=== PATIENT | male | born 1975 | race Caucasian/White ===

== ENCOUNTER 2020-05-27 20:59 | Emergency (ER) | payer SELFPAY ==
[~2020-05-27] VITALS: Ht 185.4 cm; Wt 90.0 kg
[2020-05-27] MEDS ORDERED: METOCLOPRAMIDE HCL 10 MG/2 ML VIAL. IVP ONE (21:30)
[2020-05-27] MEDS ORDERED: IV RINGERS,LACTATED 1000ML 1,000 ML IV SCH (21:30)
[2020-05-27] MEDS ORDERED: KETOROLAC 15 MG/ML VIAL. IVP ONE (21:30)
[2020-05-27 21:35] LABS: BASO % 0 % (0-3); EOS % 0 % (0-3); HEMATOCRIT 45.2 % (39.0-53.0); HEMOGLOBIN 15.5 g/dL (13.0-17.5); LYMPH # 1.4 x10^3/uL (1.0-4.8); LYMPH % 9 % (24-48); MEAN CORPUSCULAR HEMOGLOBIN 30 pg (25-35); MEAN CORPUSCULAR HGB CONC 34 g/dL (31-37); MEAN CORPUSCULAR VOLUME 87 fL (79-100); MONO # 0.8 x10^3/uL (0.0-1.1); MONO % 5 % (0-9); NEUT # 14.1 x10^3/uL (1.8-7.7); NEUT % 86 % (31-73); PLATELET COUNT 258 x10^3/uL (140-400); RED BLOOD COUNT 5.18 x10^6/uL (4.30-5.70); RED CELL DISTRIBUTION WIDTH 13.2 % (11.5-14.5); WHITE BLOOD COUNT 16.3 x10^3/uL (4.0-11.0)
--- NOTE | 2020-05-27 21:43 | PHYS DOC ---
General Adult EDM: Chief Complaint: FLANK PAIN HPI: HPI: Patient is a 44 year old male who presents to the ED today with worsening left- sided flank pain that began couple hours ago. Patient noted that his pain was sudden in onset and that he had clots of blood in his urine, dysuria, and "feeling like he has a little bathroom but cannot go." Patient's pain radiates to his middle back and down his left leg, and also goes into his left testicle. Patient did not try any pain medication prior to coming to the ED. Patient denies any other symptoms. Review of Systems: Review of Systems: Constitutional: Denies fever or chills Eyes: Denies redness or eye pain HENT: Denies nasal congestion or sore throat Respiratory: Denies cough or shortness of breath Cardiovascular: Denies chest pain or palpitations GI: Denies abdominal pain, nausea, or vomiting : Positive for hematuria and dysuria Musculoskeletal: Denies or joint pain Integument: Denies rash or skin lesions Neurologic: Denies headache, focal weakness or sensory changes Complete systems were reviewed and found to be within normal limits, except as documented in this note. Current Medications: Current Medications Medications (Trade) Dose Ordered Sig/Nohemi Start Time Stop Time Status Last Admin Dose Admin Ketorolac Tromethamine (Toradol 15mg Vial) 15 mg 1X ONCE 05/27/20 21:30 05/27/20 21:31 DC Metoclopramide HCl (Reglan Vial) 10 mg 1X ONCE 05/27/20 21:30 05/27/20 21:31 DC Ringer's Solution 1,000 ml @ 1,000 mls/hr Q1H 05/27/20 21:30 05/27/20 22:29 Allergies: Allergies: Allergies Coded Allergies Type Severity Reaction Last Updated Verified No Known Drug Allergies 05/27/20 No Physical Exam: PE: Constitutional: Well developed, well nourished, mild distress, non-toxic appearance HENT: Normocephalic, atraumatic Eyes: PERRL, EOMI, conjunctiva normal, no discharge Neck: Normal range of motion, no tenderness, supple Lungs & Thorax: No respiratory distress, equal chest rise and fall Abdomen: Soft, no tenderness, Skin: Warm, dry, no erythema, no rash Back: No tenderness, left CVA tenderness Extremities: No tenderness, ROM intact, no edema, negative straight leg raise test Neurologic: Alert and oriented X 3, normal motor function, normal sensory function, no focal deficits noted Psychologic: Affect normal, judgment normal EKG: EKG: [] Radiology/Procedures: Radiology/Procedures: PROCEDURE: CT ABDOMEN PELVIS WO CONTRAST PQRS Compliance Statement: One or more of the following individualized dose reduction techniques were utilized for this examination: 1. Automated exposure control 2. Adjustment of the mA and/or kV according to patient size 3. Use of iterative reconstruction technique CT ABDOMEN+PELVIS WO Clinical Indication: Reason: left flank pain eval for ureteral calculi / Spl. Instructions: / History: Comparison: None. Technique: Helical CT imaging of the abdomen and pelvis is performed without IV or oral contrast. Findings: Lung bases are clear. Cardiac size normal. Cholelithiasis. The liver, spleen, pancreas, adrenal glands, and abdominal aorta are normal. The right kidney is normal. There is a solid soft tissue density mass partially exophytic from the anterior lower pole of the left kidney and measures approximately 6 cm AP by 5 cm transverse by 5.6 cm craniocaudal. A few small calcifications are seen in the mass. The left renal pelvis is mildly dilated and contains a small hyperdensity as seen on image 72 which is probably hemorrhage. There is a 1.1 cm left para- aortic lymph node, image 73. Inferior to this there is a 1 cm lymph node, image 82. No obvious invasion of the left renal vein is identified. Left ureter is minimally prominent. Moderate dependent hemorrhage is identified in the urinary bladder. There is no urinary bladder wall thickening. The stomach is unremarkable. There is no dilated small bowel. The appendix is normal. No colon wall thickening is seen. The descending colon is decompressed accentuating the wall thickness. The prostate and seminal vesicles are normal. No pelvic free fluid. No acute bone abnormality. IMPRESSION: 1. There is a soft tissue density solid mass exophytic from the anterior lower pole of the left kidney, considered renal cell carcinoma until proven otherwise. 2. There are 2 mildly enlarged left para-aortic lymph nodes that may be pastor metastases. 3. There is moderate acute hemorrhage dependently in the urinary bladder. The urinary bladder is otherwise normal. Small amount of hyperdensity is seen in the left renal pelvis which is also probably hemorrhage. 4. Cholelithiasis. Electronically signed by: James Montes MD (05/27/2020 10:45 PM) [facility] DICTATED and SIGNED BY: JAMES MONTES MD DATE: 05/27/20 [id number] [] Course & Med Decision Making: Course & Med Decision Making Labs and UA were ordered in order to check for any electrolyte or urinary abnormalities. Noncontrast CT scan was ordered as well. Labs are grossly unremarkable other than noted mildly elevated AST and ALT and UA showed gross blood. Noncontrast CT showed a mass in the anterior lower pole of the left kidney with enlarged mesenteric nodes that could potentially suggest renal cell carcinoma. Patient is requiring urology consult and close follow-up. Patient requests [facility] is no urology consult is available at [place]. Utilize [employer] phone line to discuss with Dr. Jeison Rodriguez (urology) at who is in agreement with close outpatient follow-up. Patient will be provided with bladder irrigation in order to facilitate clot removal from bladder. Patient be sent home with instructions on how to flush the Phillips catheter and instructions to follow-up in 1 to 2 days. Patient was provided with the phone number if no contact is obtained. Images were clouded over to . Patient stable for discharge with outpatient follow-up with PCP/ urology. Discussed findings and plan with patient, who acknowledges understanding and agreement. [] Rukhsana Disclaimer: Rukhsana Disclaimer: This electronic medical record was generated, in whole or in part, using a voice recognition dictation system. Departure Departure Impression: Primary Impression: Left kidney mass Additional Impression: Bladder obstruction Disposition: 01 DC HOME SELF CARE/HOMELESS Condition: STABLE Referrals: NO PCP (PCP) Patient Instructions: Phillips Catheter Care, Adult, Hematuria, Adult, Renal Cell Cancer Additional Instructions: There is concern your mass may be cancerous and close Urology evaluation is required. WE have contacted Urology at your request and given them your information so they can have you closely evaluated and worked up for your abnormal CT scan. They have reported they will call you with an appointment time by tomorrow afternoon. If you have not been contacted by the afternoon, please call the Urology clinic directly at and speak with Kate. I spoke directly with Dr. Jeison Rodriguez (urology). We have also instructed you on how to flush your catheter if you start to have any further bladder obstruction. Scripts Hydrocodone Bit/Acetaminophen (HYDROCODONE-APAP 5-325 ) 1 Tab Tablet 0.5-1 TAB PO PRN Q6HRS PRN for PAIN, #14 TAB 0 Refills Prov: VANDANA BENNETT DO 05/28/20 Ondansetron (ONDANSETRON ODT) 4 Mg Tab.rapdis 1 TAB PO PRN Q6-8HRS PRN for NAUSEA, #16 TAB Prov: VANDANA BENNETT DO 05/28/20 VANDANA BENNETT DO May 27, 2020 21:43
[2020-05-27 21:47] LABS: CLARITY,URINE BLOODY; COLOR,URINE RED
[2020-05-27 21:51] LABS: BACTERIA,URINE 0 /HPF (0-FEW); RBC,URINE FIELD OBSCURED /HPF (0-2)
[2020-05-27 21:54] LABS: CREATININE 1.1 mg/dL (0.7-1.3); GFR 73.4; POTASSIUM 3.8 mmol/L (3.5-5.1)
[2020-05-27 21:59] LABS: % BANDS 3 % (0-9); % LYMPHS 10 % (24-48); % MONOS 5 % (0-10); % SEGS 82 % (35-66); PLT ESTIMATE ADEQUATE (ADEQUATE)
[2020-05-27 22:00] LABS: ALBUMIN 4.3 g/dL (3.4-5.0); ALBUMIN/GLOBULIN RATIO 1.3 (1.0-1.7); MAGNESIUM 1.9 mg/dL (1.8-2.4); TOTAL BILIRUBIN 0.3 mg/dL (0.2-1.0); TOTAL PROTEIN 7.7 g/dL (6.4-8.2)
[2020-05-27] MEDS ORDERED: IV NORMAL SALINE 1000ML BAG 1,000 ML IV ONE (22:00)
[2020-05-27] MEDS ORDERED: fentaNYL PF VIAL 100 MCG/2 ML VIAL IV ONE ×2 (22:45→23:55)
--- NOTE | 2020-05-27 22:48 | RAD ---
PQRS Compliance Statement: One or more of the following individualized dose reduction techniques were utilized for this examinat ion: 1. Automated exposure control 2. Adjustment of the mA and/or kV according to patient size 3. Use of iterative reconstruction technique CT ABDOMEN+PELVIS WO Clinical Indication: Reason: left flank pain eval for ureteral calculi / Spl. Instructions: / Histor y: Comparison: None. Technique: Helical CT imaging of the abdomen and pelvis is performed without IV or oral contrast. Findings: Lung bases are clear. Cardiac size normal. Cholelithiasis. The liver, spleen, pancreas, adrenal glands, and abdominal aorta are normal. The right kidney is normal. There is a solid soft tissue density mass partially exophytic from the anterior lower pole of the lef t kidney and measures approximately 6 cm AP by 5 cm transverse by 5.6 cm craniocaudal. A few small c alcifications are seen in the mass. The left renal pelvis is mildly dilated and contains a small hype rdensity as seen on image 72 which is probably hemorrhage. There is a 1.1 cm left para-aortic lymph n ode, image 73. Inferior to this there is a 1 cm lymph node, image 82. No obvious invasion of the left renal vein is identified. Left ureter is minimally prominent. Moderate dependent hemorrhage is identified in the urinary bladder. There is no urinary bladder wall thickening. The stomach is unremarkable. There is no dilated small bowel. The appendix is normal. No colon wall t hickening is seen. The descending colon is decompressed accentuating the wall thickness. The prostate and seminal vesicles are normal. No pelvic free fluid. No acute bone abnormality. IMPRESSION: 1. There is a soft tissue density solid mass exophytic from the anterior lower pole of the left kidn ey, considered renal cell carcinoma until proven otherwise. 2. There are 2 mildly enlarged left para-aortic lymph nodes that may be pastor metastases. 3. There is moderate acute hemorrhage dependently in the urinary bladder. The urinary bladder is oth erwise normal. Small amount of hyperdensity is seen in the left renal pelvis which is also probably h emorrhage. 4. Cholelithiasis. Electronically signed by: James Montes MD (05/27/2020 10:45 PM) [facility]
[2020-05-27 23:12] VITALS: BP 121/80
[2020-05-28] MEDS ORDERED: HYDR-2761 PO (00:18)
[2020-05-28] MEDS ORDERED: ONDA4TAB12 PO (00:18)
[2020-05-28] MEDS ORDERED: HYDROcodone/APAP 5/325MG 1 TAB TABLET PO ONE (01:00)
== END 2020-05-28 00:38 | disposition home or self-care (01) ==
LOC: ER 20:59
DX: N28.89 Other specified disorders of kidney and ureter (principal); N32.0 Bladder-neck obstruction; R30.0 Dysuria; R31.9 Hematuria, unspecified
CPT/HCPCS: 36415; 74176; 80053; 81001; 83690; 83735; 85007; 85025; 87086; 96361; 96374; 96375; 99284; J1885; J2765; J3010; J7030